=== PATIENT | female | born 1990 | race Caucasian/White ===

== ENCOUNTER → 2019-12-11 | Outpatient (CLI) | payer SELFPAY ==
--- NOTE | 2019-12-12 15:44 | CT ---
EXAM DESCRIPTION: Cardiac Calcium Scoring Screen: Computed Tomography. CLINICAL HISTORY: Coronary Artery Calcium Scoring COMPARISON: None. TECHNIQUE: Spiral-axial scans at 2.5 X 0.4 mm intervals through the coronary arteries without IV contrast. Special algorithm was used, and cardiac gating. No reconstructions. Total Exam DLP: 129 mGy-cm. This exam was performed according to our departmental CT dose-optimization program which includes automated exposure control, adjustment of the mA and/or kV according to patient size and/or use of iterative reconstruction technique; to reduce radiation dose to as low as reasonably achievable (ALARA). Some images may have been skipped or repeated due to the heart rhythm or respiration. FINDINGS: The patient has a total Agatston calcium score of 0. This places the patient in the 0 percentile in comparison to a group of patients asymptomatic for coronary artery disease with the same age and gender. This means that no females of age less than 40 have calcium scores lower than the patient. The included mediastinum, bilateral chris, and included toñito-hilar lung are negative. IMPRESSION: 1. Total coronary artery calcium score of 0. 0 percentile for age and gender. 2. The included mediastinum, lung, and toñito-hilar areas are negative. Electronically signed by: Angel Champagne MD 12/12/2019 2:11 PM CDT
== END ==
LOC: RAD 13:31
PROVIDERS: ATTEND Family Medicine
DX: Z82.49 Family history of ischemic heart disease and other diseases of the circulatory system (principal)